=== PATIENT | male | born 1975 | race Two or more races ===

== ENCOUNTER 2019-08-22 03:35 | Emergency (ER) | payer MEDICAID, OTHER ==
[~2019-08-22] VITALS: Ht 177.8 cm; Wt 77.3 kg
[2019-08-22] MEDS ORDERED: LIDOCAINE 1% 10 ML VIAL INJ ONE (04:30)
[2019-08-22 05:00] VITALS: BP 141/93
== END 2019-08-22 05:05 | disposition home or self-care (01) ==
LOC: EMS 03:35
DX: L03.011 Cellulitis of right finger (principal); F17.210 Nicotine dependence, cigarettes, uncomplicated
CPT/HCPCS: 10060; 99283; J3490